=== PATIENT | female | born 1995 | race Caucasian/White ===

== ENCOUNTER 2019-01-12 15:38 | Emergency (ER) | payer OTHER, SELFPAY ==
[2019-01-12 15:39] VITALS: BP 163/103; PULSE 104; RESP 18; TEMP 36.6; O2SAT 97; BMI 48.9
--- NOTE | 2019-01-12 15:57 | ED.DCSUM_ITS ---
- ER Visit Summary Date of Service: 01/12/19 Chief Complaint: [Pain and swelling left ankle and left foot] History of Present Illness: The patient is a 23 F [presents the ER with complaint of swelling to her left foot and ankle for about a week. Patient has pain with plantar flexion of her foot at the ankle. Patient noticed a small lump to the anterior aspect of her left ankle today became concerned. Patient is worried about possibility of a blood clot. Patient has had a recent travel of 1 month ago to [place] by car. She denies any chest pain or shortness of breath. Patient urinating normally. Patient has not had any fever. She denies any trauma to her leg or ankle.] Physical Examination: [HEENT-PERRLA, EOMI. Cranial nerves II through XII grossly intact. TMs clear. Mucous membranes moist. No adenopathy. Cardiovascular-regular rate and rhythm without murmur or ectopy Lungs-clear to auscultation, chest wall stable without crepitus or subcu emphysema Abdomen-normoactive bowel sounds, soft, nontender, no rebound or rigidity, no peritoneal signs. Extremities-intact ?4, normal range of motion, normal pulses, atraumatic. Left foot and ankle-patient has some mild edema to the dorsum of the left foot. Patient does have a small soft tissue mass to the medial aspect of the distal third of the anterior tibia slightly tender to palpation measures approximately 1.5 cm in diameter. No ropes or cords palpated on exam of the left calf and popliteal region. 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 Test Results: [D-dimer was less than 0.27.] Emergency Department Course and Treatment: [He was given an Jed wrap and she did not want crutches] Treatment Plan: [She will be given work restrictions and advised to follow-up with primary care physician within the next 5 to 7 days. Patient to keep leg elevated.] Disposition: [Discharged home in stable condition] Impression: Edema left leg Soft tissue mass left leg-etiology uncertain [] This note was generated with [employer] software. It may contain incorrect words, spelling, and punctuation that were not noted in review of the chart prior to signing ED Disposition - Plan for ED Patient: Referrals: [facility] Doctor,Out of [NON-STAFF] -
[2019-01-12 16:55] LABS: D-Dimer Quantitative (DVT/PE) < 0.27 FEU/ug/m (0.27-0.49)
--- NOTE | 2019-01-12 17:06 | ED.DEP ---
ED Disposition - Plan for ED Patient: Instructions: ED Leg Swelling Unilateral Referrals: [facility],Out of [NON-STAFF] - Alhaji Cleaning MD [STAFF PHYSICIAN] - 5-7 Days
[2019-01-12 17:18] VITALS: PULSE 86; RESP 16; O2SAT 98
== END 2019-01-12 17:19 | disposition home or self-care (01) ==
LOC: ED 16:14
PROVIDERS: Emergency Provider Emergency Medicine
DX: R60.9 Edema, unspecified (principal); M79.9 Soft tissue disorder, unspecified
CPT/HCPCS: 85379; 99282